=== PATIENT | male | born 1995 | race Caucasian/White ===

== ENCOUNTER 2016-10-03 16:54 | Emergency (ER) | payer MEDICAID ==
[2016-10-03 18:16] LABS: BASO % 0.3 % (0-2); EOS % 0.6 % (0-7); EOSINOPHIL ABSOLUTE COUNT 0.1 tho/cmm (0.0-0.7); HGB-HEMOGLOBIN 17.6 gm/dl (13.5-17.0); IMMATURE GRANULOCYTES ABSOLUTE 0.02 tho/cmm (0-0.03); IMMATURE GRANULOCYTES PERCENT 0.2 % (0-0.3); LYMPH % 19.9 % (20-45); LYMPH ABSOLUTE COUNT 2.2 tho/cmm (0.8-4.5); MCH (MEAN CORPUSCULAR HGB) 30.7 pg (28.0-32.0); MCHC MEAN CORPUSCULAR HGB CONC 35.2 % (32.0-36.0); MCV (MEAN CELL VOLUME) 87.1 fl (82.0-96.0); MEAN PLATELET VOLUME 9.1 cmc (9.4-12.4); MONO % 10.5 % (0-12); MONOCYTE ABSOLUTE COUNT 1.2 tho/cmm (0.0-1.2); NEUTROPHIL ABSOLUTE COUNT 7.6 tho/cmm (1.6-8.0); NEUTROPHIL-AUTOMATED 7.6 tho/cmm (1.6-8.0); NEUTROPHILS % 68.5 % (40-80); PLATELET COUNT 268 tho/cmm (150-450); RED BLOOD COUNT 5.74 mil/cmm (4.40-5.70); RED CELL DISTRIBUTION WIDTH 12.3 % (12.4-16.4); WHITE BLOOD COUNT 11.1 tho/cmm (4.0-10.0)
[2016-10-03 18:30] LABS: ANION GAP 14 mmol/L (0-20); BLOOD UREA NITROGEN 15 mg/dl (6-24); CALCIUM 9.7 mg/dl (8.5-10.5); CARBON DIOXIDE-VENOUS 24 mmol/L (22-32); CHLORIDE 109 mmol/l (96-110); CREATININE 0.84 mg/dl (0.60-1.30); GLUCOSE 100 mg/dL (70-110); MAGNESIUM 2.1 mg/dl (1.8-2.6); POTASSIUM 3.6 mmol/L (3.7-5.1); SODIUM 143 mmol/L (135-145); T4 (THYROXINE) 16.2 ug/dl (5.0-12.6); eGFR VALUE FOR BLACK >90 mL/Min
[2016-10-03 18:34] LABS: TSH-THYROID STIMULATING HORM. 2.52 uIU/ml (0.40-3.80)
== END 2016-10-03 19:26 ==
LOC: EDMED 16:54
PROVIDERS: Emergency Medicine
DX: F41.9 Anxiety disorder, unspecified (principal); R94.6 Abnormal results of thyroid function studies; Z90.89 Acquired absence of other organs; Z98.890 Other specified postprocedural states; Z79.899 Other long term (current) drug therapy; F17.200 Nicotine dependence, unspecified, uncomplicated
CPT/HCPCS: J7030